=== PATIENT | female | born 1985 | race Caucasian/White ===

== ENCOUNTER 2016-09-19 01:33 | Emergency (ER) | payer MEDICAID, MEDICARE ==
--- NOTE | 2016-09-19 02:24 | C.PDOC ---
History Of Present Illness 30 year old female presents to the ED seeking evaluation of bilateral foot pain due to sores. She complains of pain and sores for 2 months. Patient denies difficulty walking, radiation of pain, or other complaints at this time. Time Seen by Provider: 09/19/16 01:45 Chief Complaint (Nursing): Lower Extremity Problem/Injury History Per: Patient History/Exam Limitations: no limitations Onset/Duration Of Symptoms: Unknown Current Symptoms Are (Timing): Still Present Recent travel outside of the [place]: No Past Medical History Reviewed: Historical Data, Nursing Documentation, Vital Signs Vital Signs: Last Vital Signs Temp 98.0 F 09/19/16 02:47 Pulse 80 09/19/16 02:47 Resp 16 09/19/16 02:47 BP 120/70 09/19/16 02:47 Pulse Ox 98 09/19/16 02:48 - Medical History PMH: Anxiety, Asthma, Depression, Hypercholesterolemia, Migraine, Schizophrenia - [facility] Procedures FAMILY THERAPY (07/22/12) INDIVID PSYCHOTHERAP NEC (08/17/12) INJECT/INFUSE NEC (07/21/12) OTHER GROUP THERAPY (08/17/12) Family History: States: Unknown Family Hx - Social History Hx Tobacco Use: Yes Hx Alcohol Use: Yes Hx Substance Use: No - Immunization History Hx Tetanus Toxoid Vaccination: No Hx Influenza Vaccination: No Hx Pneumococcal Vaccination: No Review Of Systems Constitutional: Negative for: Fever, Chills Cardiovascular: Negative for: Chest Pain Respiratory: Negative for: Shortness of Breath Musculoskeletal: Positive for: Foot Pain (bilateral foot sores). Negative for: Leg Pain Neurological: Negative for: Weakness, Numbness Physical Exam - Physical Exam Appears: Non-toxic, No Acute Distress, Unkempt, Other (Patient is not wearing socks. Upon exam patient states she wants to take a shower. ) Skin: Warm, Dry Head: Atraumatic, Normacephalic Eye(s): bilateral: Normal Inspection Oral Mucosa: Moist Neck: Supple Chest: Symmetrical Cardiovascular: Rhythm Regular Extremity: Normal ROM, No Tenderness, No Calf Tenderness, Capillary Refill ( good capillary refill, less than 2 seconds), No Deformity, No Swelling, Other ( bright erythema, thickening of plantar surface skin and flaking to bilateral feet; superficial maceration and 0.5cm ulcer to left lateral 5th digit) Neurological/Psych: Oriented x3, Normal Speech Gait: Steady ED Course And Treatment O2 Sat by Pulse Oximetry: 98 (room air ) Pulse Ox Interpretation: Normal Medical Decision Making Medical Decision Making: Patient with complaints of bilateral foot pain and rash. Exam consistent with tinea pedis. Patient is homeless and asking for shower and intermediate for the night. Patient given list of local shelters and given Rx. Patient stable for discharge Disposition - Disposition Referrals: [facility] [Outside] Podiatry Clinic [Outside] Disposition: HOME/ ROUTINE Disposition Time: 02:23 Condition: STABLE Additional Instructions: apply cream to feet daily for 1-3 weeks follow up with podiatry clinic Prescriptions: Clotrimazole 1% Cream [Lotrimin 1%] 30 applic EXT DAILY #1 tube Instructions: Tinea Pedis (ED) Forms: [employer] [facility] (Bengali) - POA Present On Arrival: None - Clinical Impression Clinical Impression: Tinea pedis - PA / BAG [employer]ER / Resident Statement MD/DO has reviewed & agrees with the documentation as recorded. - Scribe Statement The provider has reviewed the documentation as recorded by the Scribe Mora Mendoza All medical record entries made by the Michelleibjennifer were at my direction and personally dictated by me. I have reviewed the chart and agree that the record accurately reflects my personal performance of the history, physical exam, medical decision making, and the department course for this patient. I have also personally directed, reviewed, and agree with the discharge instructions and disposition.
[2016-09-19 02:47] VITALS: BP 120/70; PULSE 80; RESP 16; TEMP 98
[2016-09-19 02:48] VITALS: O2SAT 98
== END 2016-09-19 02:47 | disposition home or self-care (01) ==
LOC: C.ER 01:33
DX: B35.3 Tinea pedis (principal)